=== PATIENT | female | born 1990 | race Caucasian/White ===

== ENCOUNTER 2018-07-03 11:38 | Outpatient (CLI) | payer OTHER ==
[2018-07-03 12:46] LABS: HEMOGLOBIN 13.2 g/dl (12.0-15.5); MEAN CORPUSCULAR HEMOGLOBIN 32.4 pg (27.0-33.0); MEAN CORPUSCULAR HGB CONC 34.7 g/dl (32.0-36.5); MEAN CORPUSCULAR VOLUME 93.4 fl (80.0-96.0); PLATELET COUNT, AUTOMATED 230 10^3/uL (150-450); RED BLOOD COUNT 4.07 10^6/uL (4.00-5.40); RED CELL DISTRIBUTION WIDTH 13.2 % (11.5-14.5); WHITE BLOOD COUNT 12.7 10^3/uL (4.0-10.0)
[2018-07-03 13:04] LABS: CREATININE,RANDOM URINE 43.5 MG/DL
[2018-07-03 13:04] LABS: TOTAL PROTEIN,RANDOM URINE 7.9 MG/DL (0.0-12.0)
[2018-07-03 13:08] LABS: ALT/SGPT 23 U/L (12-78); AST/SGOT 15 U/L (7-37); BILIRUBIN,TOTAL 0.3 MG/DL (0.2-1.0); CREATININE FOR GFR 0.65 MG/DL (0.55-1.30); GLOMERULAR FILTRATION RATE > 60.0 (>60); LDH LACTATE DEHYDROGENASE 153 U/L (84-246); URIC ACID 4.3 MG/DL (2.6-6.0)
== END 2018-07-03 14:37 | disposition home or self-care (01) ==
LOC: M LDO 11:38
DX: O26.893 Other specified pregnancy related conditions, third trimester (principal); R03.0 Elevated blood-pressure reading, without diagnosis of hypertension; O99.353 Diseases of the nervous system complicating pregnancy, third trimester; G43.909 Migraine, unspecified, not intractable, without status migrainosus; Z3A.37 37 weeks gestation of pregnancy
CPT/HCPCS: 59025

== ENCOUNTER 2018-07-20 16:38 | Inpatient (IN) | payer OTHER ==
[2018-07-20] MEDS: LACTATED RINGER'S 1000 ML IV (17:41)
[2018-07-20 18:19] LABS: HEMATOCRIT 39.6 % (36.0-47.0); HEMOGLOBIN 13.9 g/dl (12.0-15.5); MEAN CORPUSCULAR HEMOGLOBIN 32.5 pg (27.0-33.0); MEAN CORPUSCULAR HGB CONC 35.1 g/dl (32.0-36.5); MEAN CORPUSCULAR VOLUME 92.5 fl (80.0-96.0); PLATELET COUNT, AUTOMATED 268 10^3/uL (150-450); RED BLOOD COUNT 4.28 10^6/uL (4.00-5.40); RED CELL DISTRIBUTION WIDTH 12.9 % (11.5-14.5)
[2018-07-20] MEDS ORDERED: FENTANYL 2MCG/ML ROPIVACAINE 0.2% IN 0.9% NACL 200ML IVBAG As Ordered (18:28)
[2018-07-20] MEDS ORDERED: OXYTOCIN 30 UNITS IN 0.9% NaCl 500ML IV BAG (J2590) As Ordered (19:12)
[2018-07-20] MEDS ORDERED: diphenhydrAMINE INJ 50MG/ML VIAL (J1200) IV (19:15)
[2018-07-20] MEDS ORDERED: ePHEDrine SULFATE 25 MG/5 ML(5MG/ML) SYRINGE IV (19:15)
[2018-07-20] MEDS ORDERED: EPIDURAL/PCA KEYS XX (19:15)
[2018-07-20] MEDS ORDERED: ONDANSETRON 4MG/2ML VIAL (J2405) IV (19:15)
[2018-07-20] MEDS ORDERED: NALOXONE INJ 0.4 MG/1 ML VIAL (J2310) IV (19:15)
[2018-07-20] MEDS ORDERED: LACTATED RINGER'S 1000 ML IV (19:15)
[2018-07-20] MEDS ORDERED: EPIDURAL COMMENT XX (19:15)
[2018-07-20] MEDS: FENTANYL/ROPIVACAINE/NACL BAG 200 ML EPIDURAL (19:15)
[2018-07-20] MEDS ORDERED: REFRIGERATOR IV KEYS XX (19:15)
[2018-07-20] MEDS: LR 1,000 ML IV (19:22)
[2018-07-20] MEDS: OXYTOCIN DRIP 30 UNITS in APPROPRIATE DILUENT 1 EA IV (20:20)
[2018-07-20] MEDS ORDERED: DIBUCAINE 1% OINTMENT 30GM TOP (20:30)
[2018-07-20] MEDS ORDERED: MEASLES,MUMPS,RUBELLA VACCINE INJ (MMR-II) (90707) SC (20:30)
[2018-07-20] MEDS ORDERED: METOCLOPRAMIDE INJ 10MG/2ML VIAL (J2765) IV (20:30)
[2018-07-20] MEDS ORDERED: RHOGAM 300 MCG (1500 IU) INJ (J2790) IM (20:30)
[2018-07-20] MEDS: DOCUSATE SODIUM 100 MG CAP PO (21:00)
[2018-07-21] MEDS: IBUPROFEN 800 MG TAB PO ×3 (02:25→20:45)
[2018-07-21] MEDS: ACETAMINOPHEN TAB 650MG DOSE (2X325MG) PO ×3 (02:43→15:50)
[2018-07-21] MEDS: DOCUSATE SODIUM 100 MG CAP PO ×2 (08:38→20:45)
[2018-07-21] MEDS: PRENATAL VITAMINS CHEWABLE TABLET PO (08:39)
[2018-07-21] MEDS: FIORICET TAB PO (17:01)
[2018-07-21] MEDS ORDERED: FIORICET TAB PO (23:00)
[2018-07-22] MEDS: PRENATAL VITAMINS CHEWABLE TABLET PO (08:19)
[2018-07-22] MEDS: DOCUSATE SODIUM 100 MG CAP PO (08:19)
[2018-07-22] MEDS: IBUPROFEN 800 MG TAB PO (08:21)
== END 2018-07-22 11:45 | disposition home or self-care (01) | DRG 807 ==
LOC: M LDO 16:38 → M LDI 17:52 → M OBS 21:43
PROVIDERS: Obstetrics & Gynecology
PROC: 10E0XZZ Delivery of Products of Conception, External Approach (ICD-10-PCS; principal; 2018-07-20)
DX: O32.6XX0 Maternal care for compound presentation, not applicable or unspecified (principal); Z37.0 Single live birth; Z3A.39 39 weeks gestation of pregnancy

== ENCOUNTER 2018-07-25 11:44 | Emergency (ER) | payer OTHER ==
[2018-07-25] MEDS: KETOROLAC 30 MG/ML VIAL (J1885) IV (12:55)
[2018-07-25] MEDS: METOCLOPRAMIDE INJ 10MG/2ML VIAL (J2765) IV (12:55)
[2018-07-25] MEDS: diphenhydrAMINE INJ 50MG/ML VIAL (J1200) IV (12:55)
[2018-07-25 13:01] LABS: ALBUMIN 2.8 GM/DL (3.2-5.2); ALBUMIN/GLOBULIN RATIO 0.67 (1.00-1.93); ALKALINE PHOSPHATASE 120 U/L (45-117); ALT/SGPT 38 U/L (12-78); ANION GAP 7 MEQ/L (8-16); AST/SGOT 20 U/L (7-37); BASO % 0.3 % (0.0-1.0); BILIRUBIN,DIRECT < 0.1 MG/DL (0.0-0.2); BILIRUBIN,TOTAL 0.3 MG/DL (0.2-1.0); BLOOD UREA NITROGEN 19 MG/DL (7-18); CALCIUM LEVEL 8.4 MG/DL (8.5-10.1); CARBON DIOXIDE LEVEL 24 MEQ/L (21-32); CHLORIDE LEVEL 109 MEQ/L (98-107); CREATININE FOR GFR 0.89 MG/DL (0.55-1.30); EOS # 0.1 10^3/uL (0.0-0.50); EOS % 1.1 % (0.0-3.0); FREE T4 0.96 NG/DL (0.76-1.46); GLOMERULAR FILTRATION RATE > 60.0 (>60); GLUCOSE, FASTING 84 MG/DL (70-100); HEMATOCRIT 42.4 % (36.0-47.0); HEMOGLOBIN 14.7 g/dl (12.0-15.5); IMMATURE GRANULOCYTE % 1.2 % (0-3.0); LYMPH # 3.9 10^3/uL (1.5-4.5); LYMPH % 31.1 % (24.0-44.0); MAGNESIUM LEVEL 2.2 MG/DL (1.8-2.4); MEAN CORPUSCULAR HEMOGLOBIN 32.3 pg (27.0-33.0); MEAN CORPUSCULAR HGB CONC 34.7 g/dl (32.0-36.5); MEAN CORPUSCULAR VOLUME 93.2 fl (80.0-96.0); MONO # 0.6 10^3/uL (0.0-0.8); MONO % 4.4 % (0.0-5.0); NEUTROPHILS # 7.8 10^3/uL (1.8-7.7); NEUTROPHILS % 61.9 % (36.0-66.0); PLATELET COUNT, AUTOMATED 321 10^3/uL (150-450); POTASSIUM SERUM 4.1 MEQ/L (3.5-5.1); RED BLOOD COUNT 4.55 10^6/uL (4.00-5.40); RED CELL DISTRIBUTION WIDTH 12.5 % (11.5-14.5); SODIUM LEVEL 140 MEQ/L (136-145); WHITE BLOOD COUNT 12.6 10^3/uL (4.0-10.0)
[2018-07-25 13:25] LABS: PROTHROMBIN TIME 12.3 SECONDS (12.1-14.4)
[2018-07-25 13:26] LABS: PARTIAL THROMBOPLASTIN TIME 28.5 SECONDS (25.4-37.6)
[2018-07-25] MEDS: NS 1,000 ML IV (13:51)
[2018-07-25 15:22] LABS: KETONE, URINE AUTO RFX NEGATIVE (NEGATIVE); NITRITE, URINE AUTO RFX NEGATIVE (NEGATIVE); RBC, URINE AUTO RFX 9 /HPF (0-3); SQUAM EPITHELIAL CELL UR AURFX 0 /HPF (0-6); WBC, URINE AUTO RFX 4 /HPF (0-3)
[2018-07-25 15:30] LABS: LEUKOCYTE ESTERASE UR AUTO RFX TRACE (NEGATIVE)
== END 2018-07-25 15:45 | disposition other institution (70) ==
LOC: M ED 11:44
DX: G97.1 Other reaction to spinal and lumbar puncture (principal)
CPT/HCPCS: J1200

== ENCOUNTER 2018-07-25 15:27 | Outpatient (CLI) | payer OTHER ==
[~2018-07-25 15:27] MED LIST: COLA100C5 PO; FIOR1CAP PO; IBUP-1114 PO; MAPA500T17 PO; PRENTAB7 PO
[2018-07-25 17:05] VITALS: BP 137/68
== END 2018-07-25 17:06 ==
LOC: INTOOBSV 15:27 → M ED INP 15:27 → M OPP 15:27 → UNDOADMOB 15:27 → M RR INP 15:28 → M OPP 17:06 → UNDODISOB 17:06 → EDSTATUS 07-26 10:42
PROVIDERS: ATTEND Anesthesiology
DX: R51 Headache (principal); G97.1 Other reaction to spinal and lumbar puncture; K21.9 Gastro-esophageal reflux disease without esophagitis